=== PATIENT | female | born 1985 | race Hispanic/Latino ===

== ENCOUNTER 2021-09-25 08:37 | Emergency (ER) | payer BC, SELFPAY ==
[2021-09-25 08:47] VITALS: BP 136/85; PULSE 98; RESP 18; TEMP 38.2; O2SAT 98
--- NOTE | 2021-09-25 08:55 | ED.URI ---
HPI - URI/Sore Throat General Chief Complaint: Upper Respiratory Infection Stated Complaint: Sinus Infection Time Seen by Provider: 09/25/21 08:55 Source: patient and RN notes reviewed Mode of arrival: ambulatory Limitations: no limitations History of Present Illness HPI Narrative: 36-year-old female presents to [facility] with complaints of sinus infection for the last 3 to 4 days. Has been using DayQuil and NyQuil along with a humidifier. Complains of bilateral ear discomfort. States she is thinks she has had a fever Denies any chest pain or abdominal pain. No nausea vomiting or diarrhea. Denies any cough. No shortness of breath. Patient states that she received her flu vaccine in June. Patient denies having Covid vaccine. Related Data Home Medications Medication Instructions Recorded Confirmed dextroamphetamine-amphetamine 15 mg PO DAILY 09/25/21 09/25/21 epinephrine 0.3 mg IM DIRECTED 09/25/21 09/25/21 ergocalciferol (vitamin D2) 1,250 mcg PO DAILY 09/25/21 09/25/21 metformin 500 mg PO BID 09/25/21 09/25/21 Allergies Allergy/AdvReac Type Severity Reaction Status Date / Time No Known Allergies Allergy Verified 09/25/21 08:52 Review of Systems Review of Systems: All systems reviewed & are unremarkable except as noted in HPI and below Constitutional: Constitutional: Reports no additional constitutional complaints, Denies chills and Denies fever(s) Eyes: Eyes: Reports no additional eye complaints ENT: Reports as per HPI and Reports nasal congestion Cardiovascular: Cardiovascular: Reports no additional cardiovascular complaints and Denies chest pain Respiratory: Respiratory: Reports no additional respiratory complaints, Denies cough and Denies dyspnea Gastrointestinal: Gastrointestinal: Reports no additional gastrointestinal complaints, Denies abdominal pain, Denies diarrhea, Denies nausea and Denies vomiting Genitourinary: Genitourinary: Reports no additional female genitourinary complaints Musculoskeletal: Musculoskeletal: Reports no additional musculoskeletal complaints Integumentary/Breasts: Skin/Breast: Reports system reviewed and no additional complaints, except as docu Neurologic: Reports system reviewed and no additional complaints, except as documented Psychiatric: Psychiatric: Reports no additional psychiatric complaints Allergic/Immunologic: Allergic/Immunologic: Reports no additional allergic/immunologic complaints PMFSH Past Medical History Medical History ADHD PCOS (polycystic ovarian syndrome) Family History Family History Mother Hypertension Family history of diabetes mellitus in first degree relative Grandparent Family history of coronary artery disease Diabetes mellitus Social History Social History Smoking status: Never smoker Alcohol intake: current Comments At the time of my signature, I reviewed and agree with the nursing past medical, surgical, social, and family history. There is no relevant family history pertinent to the patient complaint. Exam Const: General: healthy appearing, no acute distress and alert Nutritional Appearance: well nourished and obese Orientation/consciousness: patient oriented x3 Limitations: no limitations HENMT: Head: normal to inspection Ears: external ears normal, TM's normal bilaterally and EAC's normal Eyes: Pupils: Equal, round and reactive pupils present Neck: Neck: normal visual inspection, no lymphadenopathy and no meningeal signs Chest: Chest palpation & inspection: normal inspection of the chest Resp: Effort & Inspection: normal respiratory effort and no use of accessory muscles Auscultation: clear to auscultation bilaterally, no crackles, no rales, no rhonchi and no wheezes Cardio: Rate: regular rate Rhythm: regular rhythm Back/Spine/Pelvis: Back: no CVA ten
== END 2021-09-25 09:45 | disposition home or self-care (01) ==
PROVIDERS: Emergency Provider Nurse Practitioner; PCP Physician Assistant
DX: B34.9 Viral infection, unspecified (principal); J06.9 Acute upper respiratory infection, unspecified
CPT/HCPCS: 87804; 99213; G0463

== ENCOUNTER 2021-10-05 07:47 | Outpatient (CLI) | payer BC, SELFPAY ==
--- NOTE | 2021-10-06 16:10 | WPDHOMESLEEP ---
Sleep Study - Home Unattended Date of Study: 10/05/21 <Kika Manjarrez, DO - Last Filed: 10/06/21 16:21> Ordering Provider: Gilbert InterianoCARLEY <Kika Manjarrez, DO - Last Filed: 10/06/21 16:21> Interpreting Provider: Kika Manjarrez DO <Kika Manjarrez, DO - Last Filed: 10/06/21 16:21> Home Sleep Study Type: Apnea Link Air <Kika Manjarrez, DO - Last Filed: 10/06/21 16:21> Height: 1.7 m <Kika Manjarrez DO - Last Filed: 10/06/21 16:21> Weight: 154.221 kg <Kika Manjarrez DO - Last Filed: 10/06/21 16:21> Body Mass Index: 53.2 <Kika Manjarrez DO - Last Filed: 10/06/21 16:21> Neck Circumference (inches): 16.75 <Kika Manjarrez DO - Last Filed: 10/06/21 16:21> [place]: 12 <Kika Manjarrez DO - Last Filed: 10/06/21 16:21> Reason for Sleep Study Unrefreshing sleep, daytime hypersomnia <Kika Manjarrez, DO - Last Filed: 10/06/21 16:21> Sleep History The patient is a 36-year-old female with ADHD, hypothyroidism, PCOS, Vitamin D deficiency and morbid obesity that had a home sleep test ordered by her primary care for evaluation sleep apnea. The patient occasionally awakens from sleep short of breath. She denies awakening at night with heartburn, belching or cough. She constantly snores loud enough that others complain. She frequently has trouble sleeping when she has a cold. She denies waking up gasping for air throughout the night. She frequently has breathing problems at night observed by herself or others. She denies sweating excessively at night. She denies heart palpitations or irregular heartbeats during the night. She occasionally falls asleep during the day but never while driving. She denies sleep paralysis, cataplexy and hypnagogic / hypnopompic hallucinations. She constantly has trouble at work due to sleepiness. She denies having nightmares. She frequently has thoughts racing through her mind. She occasionally feels sad or depressed. She occasionally has Keri. She occasionally notices parts of her body jerk. She denies kicking throughout the night. She occasionally has crawling and aching feelings in her legs as well as leg pain during the night. She denies grinding her teeth during sleep awakening with morning jaw pain. She denies being bothered by pain during the day and being awakened by pain during the night. She denies waking up feeling stiff in the morning with sore and achy muscles. She goes to bed at 10:00 p.m. on weekdays and 11:00 p.m. on the weekends. It takes her 1-2 hours to fall asleep. She typically wakes up 4-5 times throughout the night to urinate. She can fall back asleep within 5 minutes. She wakes up at 6:00 a.m. on both weekdays and weekends. She typically gets 5 hours of sleep per night. She will stay in bed for 5 minutes after awakening in the morning. She currently lives with her and children. She denies consuming any caffeinated beverages within 2 hours of bedtime. She does not engage in physical exercise before bedtime. She will read watch television before falling asleep she will take naps in the afternoon or the evening and they are refreshing. He does consume caffeinated beverages throughout the day. She denies tobacco, alcohol and recreational drug use. <Kika Manjarrez DO - Last Filed: 10/06/21 16:21> [facility] Past Medical History Medical History: Medical History ADHD PCOS (polycystic ovarian syndrome) <Kika Manjarrez DO - Last Filed: 10/06/21 16:21> Family History Family History: Family History Mother Hypertension Family history of diabetes mellitus in first degree relative Grandparent Family history of coronary artery disease Diabetes mellitus <Kika Manjarrez, DO - Last Filed: 10/06/21 16:21> Social Histor
[2021-10-06 16:20] VITALS: BMI 53.2
== END 2021-10-06 16:01 | disposition home or self-care (01) ==
LOC: ANHCSM 07:48
PROVIDERS: PCP Physician Assistant; Visit Provider Physician Assistant
DX: G47.33 Obstructive sleep apnea (adult) (pediatric) (principal)
CPT/HCPCS: 95806

== ENCOUNTER → 2021-11-11 00:53 | Outpatient (CLI) | payer BC, SELFPAY ==
[2021-11-11 11:43] LABS: SARS-CoV-2 RNA PCR Negative
== END ==
PROVIDERS: PCP Physician Assistant; Visit Provider Internal Medicine Critical Care Medicine
DX: Z01.812 Encounter for preprocedural laboratory examination (principal); Z20.822 Contact with and (suspected) exposure to COVID-19
CPT/HCPCS: C9803; U0003; U0005

== ENCOUNTER 2021-11-13 08:19 | Outpatient (CLI) | payer BC, SELFPAY ==
--- NOTE | 2021-11-23 16:02 | WPDSLEEPSTUD ---
Sleep Study Date of Study: 11/13/21 Ordering Provider: Hillary Interiano, CARLEY Interpreting Physician: Kika Manjarrez, Sleep Study Type: CPAP Titration Height: 1.7 m Weight: 145.15 kg Body Mass Index: 50.1 Neck Circumference (inches): 16.75 [place]: 12 Reason for Sleep Study The patient had an HSAT on 10/05/2021 that showed an AHI of 40.5. She spent 64 minutes with an oxygen saturation less than 88%. Her lowest recorded oxygen saturation was 47%. Sleep History The patient is a 36-year-old female with ADHD, hypothyroidism, PCOS, Vitamin D deficiency and morbid obesity that had a home sleep test ordered by her primary care for evaluation sleep apnea. The patient occasionally awakens from sleep short of breath. She denies awakening at night with heartburn, belching or cough. She constantly snores loud enough that others complain. She frequently has trouble sleeping when she has a cold. She denies waking up gasping for air throughout the night. She frequently has breathing problems at night observed by herself or others. She denies sweating excessively at night. She denies heart palpitations or irregular heartbeats during the night. She occasionally falls asleep during the day but never while driving. She denies sleep paralysis, cataplexy and hypnagogic / hypnopompic hallucinations. She constantly has trouble at work due to sleepiness. She denies having nightmares. She frequently has thoughts racing through her mind. She occasionally feels sad or depressed. She occasionally has Keri. She occasionally notices parts of her body jerk. She denies kicking throughout the night. She occasionally has crawling and aching feelings in her legs as well as leg pain during the night. She denies grinding her teeth during sleep awakening with morning jaw pain. She denies being bothered by pain during the day and being awakened by pain during the night. She denies waking up feeling stiff in the morning with sore and achy muscles. She goes to bed at 10:00 p.m. on weekdays and 11:00 p.m. on the weekends. It takes her 1-2 hours to fall asleep. She typically wakes up 4-5 times throughout the night to urinate. She can fall back asleep within 5 minutes. She wakes up at 6:00 a.m. on both weekdays and weekends. She typically gets 5 hours of sleep per night. She will stay in bed for 5 minutes after awakening in the morning. She currently lives with her and children. She denies consuming any caffeinated beverages within 2 hours of bedtime. She does not engage in physical exercise before bedtime. She will read watch television before falling asleep she will take naps in the afternoon or the evening and they are refreshing. She does consume caffeinated beverages throughout the day. She denies tobacco, alcohol and recreational drug use. [facility], [facility] Past Medical History Medical History ADHD PCOS (polycystic ovarian syndrome) Family History Family History Mother Hypertension Family history of diabetes mellitus in first degree relative Grandparent Family history of coronary artery disease Diabetes mellitus Social History Social History Smoking status: Never smoker Alcohol intake: current Medications Home Medications Medication Instructions Recorded Confirmed Type dextroamphetamine-amphetamine 15 mg PO DAILY 09/25/21 09/25/21 History epinephrine 0.3 mg IM DIRECTED 09/25/21 09/25/21 History ergocalciferol (vitamin D2) 1,250 mcg PO DAILY 09/25/21 09/25/21 History metformin 500 mg PO BID 09/25/21 09/25/21 History Sleep Procedure This test was performed using the [facility] multiple channel system including EOG, EEG, submental EMG, EKG, nasal and oral airflow using thermistors and nasal pressure sensors, chest and abdominal belts for body position data, an
[2021-11-23 16:15] VITALS: BMI 50.1
== END 2021-11-14 07:01 | disposition home or self-care (01) ==
LOC: ANHCSM 08:20
PROVIDERS: PCP Physician Assistant; Visit Provider Physician Assistant
DX: G47.33 Obstructive sleep apnea (adult) (pediatric) (principal)
CPT/HCPCS: 95811

== ENCOUNTER → 2022-09-23 14:55 | Outpatient (CLI) | payer BC, SELFPAY ==
--- NOTE | ~2022-09-23 | US_ITS ---
EXAMINATION: US pelvic complete w TV DATE: 09/23/2022 15:30 INDICATION: Personal history of other diseases of the female genital tract. Pelvic pain. Irregular pe riods. TECHNIQUE: Multiple transabdominal and transvaginal sonographic images of the pelvis were obtained. COMPARISON: Ultrasound 06/15/2019 FINDINGS: TRANSABDOMINAL ULTRASOUND: The uterus measures 9.5 x 5.3 x 7.1 cm. There is physiologic free fluid in the pelvis. TRANSVAGINAL ULTRASOUND: The endometrial complex measures 15 mm in thickness. There is a nabothian cyst in the cervix. The rig ht ovary measures 2.5 x 2.0 x 3.0 cm. The left ovary measures 3.6 x 3.2 x 2.8 cm. There is normal vas cular flow in the ovaries. IMPRESSION: 1. No etiology for the patient's symptoms. Reviewed, dictated and finalized at location A. CHECKER
== END ==
PROVIDERS: PCP Physician Assistant; Visit Provider Obstetrics & Gynecology
DX: N92.6 Irregular menstruation, unspecified (principal); Z87.42 Personal history of other diseases of the female genital tract
CPT/HCPCS: 76830; 76856

== ENCOUNTER → 2023-09-06 12:39 | Outpatient (CLI) | payer BC, SELFPAY ==
--- NOTE | ~2023-09-06 | US_ITS ---
EXAMINATION: US OB <= 14 weeks fetus DATE: 09/06/2023 12:54 INDICATION: Spotting during first trimester TECHNIQUE: Real-time pelvic transabdominal and transvaginal ultrasound was performed. COMPARISON: None. FINDINGS: The uterus measures 14 x 8.9 x 9.1 cm. There is an intrauterine gestational sac. A yolk sac is identified. heart motion is identified measuring 161 beats per minute (bpm) by M-mode Doppl er. The crown rump length measures 3.8 cm, which correlates with an estimated gestational age o f 10 weeks and 5 day(s) (+/-) 7 day(s). The ovaries are not visualized however no adnexal abnormality is seen. There is no free fluid in the pelvis. IMPRESSION: 1. Live intrauterine with an estimated gestational age of 10 weeks and 8 day(s) (+/-) 7 day (s) and an estimated delivery date of 03/29/2024. Reviewed, dictated and finalized at location L. K MANAGER IMPRESSION: 1. Live intrauterine with an estimated gestational age of 10 weeks an d 8 day(s) (+/-) 7 day(s) and an estimated delivery date of 03/29/2024.
== END ==
PROVIDERS: PCP Obstetrics & Gynecology Gynecology; Visit Provider Obstetrics & Gynecology Gynecology
DX: O20.0 Threatened abortion (principal); Z3A.00 Weeks of gestation of pregnancy not specified
CPT/HCPCS: 76801

== ENCOUNTER 2024-02-29 14:54 | Outpatient (CLI) | payer BC, SELFPAY ==
[2024-02-29] VITALS (9 sets, daily range): BP systolic 140–174; BP diastolic 87–94; PULSE 73–84
[2024-02-29 15:38] LABS: Basophils Percent Auto 0.4 % (0.2-1.2); Eosinophils Absolute Auto 0.1 K/mm3 (0-0.3); Eosinophils Percent Auto 1.2 % (0-4.4); Hematocrit 36.2 % (37.0-47.0); Immature Granulocyte Absolute 0.06 K/mm3 (0.00-0.031); Immature Granulocyte Percent A 0.7 % (0-0.5); Lymphocytes Absolute Auto 1.64 K/mm3 (0.9-3.2); Lymphocytes Percent Auto 18.4 % (18.3-44.2); Mean Corpuscular HGB Conc 33.1 g/dl (32-36); Mean Corpuscular Hemoglobin 29.3 pg (26-34); Mean Corpuscular Volume 88.3 fl (80-100); Mean Platelet Volume 11.8 fl (7.4-10.4); Monocytes Absolute Auto 0.6 K/mm3 (0.1-0.6); Monocytes Percent Auto 6.7 % (2.6-8.5); Neutrophils Absolute Auto 6.5 K/mm3 (1.3-6.7); Neutrophils Percent Auto 72.6 % (45.5-73.1); Platelet Count Result 227 k/mm3 (150-375); Red Cell Distribution Width 15.3 % (11.5-14.5); White Blood Count 8.9 K/mm3 (4.5-10.0)
[2024-02-29 15:48] LABS: Alanine Aminotransferase 12 U/L (6-35); Albumin Level 3.3 g/dL (3.5-5.1); Alkaline Phosphatase 103 U/L (38-126); Anion Gap 4 mmol/L (4-12); Aspartate Amino Transferase 16 U/L (14-36); Bilirubin,Total 0.3 mg/dL (0.2-1.3); Blood Urea Nitrogen 14 mg/dL (7-17); Calcium 9.2 mg/dL (8.4-10.2); Carbon Dioxide 22 mmol/L (22-30); Chloride 107 mmol/L (98-107); Estimated Glomerular Filt Rate > 60; Glucose 113 mg/dL (65-110); Potassium 4.5 mmol/L (3.4-5.0); Sodium 133 mmol/L (137-145); Uric Acid 6.1 mg/dL (2.5-7.5)
[2024-02-29 15:54] LABS: Appearance Urine Clear (Clear); Bacteria Urine Rare /hpf; Bilirubin Urine Negative (Negative); Blood Urine Negative (Negative); Color Urine Yellow (Yellow); Glucose Urine UA Negative (Negative); Ketones Urine Negative (Negative); Leukocyte Esterase Ur 2+ LEU/UL (Negative); Nitrate Urine Negative (Negative); Non Pathogenic Casts 0-2; Protein Urine Trace mg/dL (Negative); RBC Urine 0-2 /hpf (0-2); Specific Grav Ur 1.021 (1.001-1.035); Squamous Epithelial Cell Urine Moderate /hpf (Few); WBC Urine 21-50 /hpf (0-3); pH Urine 6.5 (5.0-9.0)
[2024-02-29 16:27] LABS: Add Urine Microscopic? YES
--- NOTE | 2024-02-29 16:35 | PM.OBTRLD ---
OB - Triage/Final Diagnosis Visit Information Date of evaluation: 02/29/24 Reason for evaluation: other (r/o preeclampsia) Comments/Additional reasons for admission: I have assessed the risk for this patient, Shelly Ceballos, and determined that she would benefit from observation care. Evaluation Laboratory results: Laboratory Tests 02/29/24 15:14 WBC 8.9 RBC 4.10 L Hgb 12.0 Hct 36.2 L MCV 88.3 MCH 29.3 MCHC 33.1 RDW 15.3 H Plt Count 227 MPV 11.8 H Immature Gran % (Auto) 0.7 H Neut % (Auto) 72.6 Lymph % (Auto) 18.4 [place] % (Auto) 6.7 Eos % (Auto) 1.2 Baso % (Auto) 0.4 Lymph # (Auto) 1.64 [place] # (Auto) 0.6 Eos # (Auto) 0.1 Baso # (Auto) 0.0 Abs Immat Gran (auto) 0.06 H Absolute Neuts (auto) 6.5 Absolute Nucleated RBC 0.000 Nucleated RBC % 0.0 Sodium 133 L Potassium 4.5 Chloride 107 Carbon Dioxide 22 Anion Gap 4 BUN 14 Creatinine 0.50 L Estim Creat Clear Calc Not Reportable Estimated GFR > 60 Glucose 113 H Uric Acid 6.1 Calcium 9.2 Total Bilirubin 0.3 AST 16 ALT 12 Alkaline Phosphatase 103 Total Protein 6.0 L Albumin 3.3 L Urine Color Yellow Urine Appearance Clear Urine pH 6.5 Ur Specific [place] 1.021 Urine Protein Trace Urine Glucose (UA) Negative Urine Ketones Negative Ur Blood (Man) Negative Urine Nitrate Negative Urine Bilirubin Negative Urine Urobilinogen 1.0 Leukocyte Esterase Rfl 2+ H Urine RBC 0-2 Urine WBC 21-50 H Ur Squamous Epith Cells Moderate Urine Bacteria Rare Urine Casts 0-2 Vital signs: Vital Signs - 24 hr 02/29/24 15:30 02/29/24 15:45 02/29/24 16:00 Pulse Rate 77 79 78 Blood Pressure 153/90 H 154/87 H 151/94 H 02/29/24 16:15 02/29/24 16:30 Pulse Rate 74 76 Blood Pressure 140/87 144/87 H Comments: NST reactive. BPs mild range, 1 severe but was talking on phone and legs crossed. Rechecked and mild range. No MARTIN, visual changes, RUQ pain. Labs WNL. DC home with 24 hour urine collection. Pt to check BPs at home BID and report if greater than 160/110. To turn in 24 hour urine tomorrow. NST in the office on 03/02/24
[2024-02-29 17:18] LABS: Creatinine Urine 77.5 mg/dL; Total Protein Urine Random 19 mg/dL; Ur Ttl Prot Creatinine Ratio 0.25 mg/mg (0-0.20)
== END 2024-02-29 17:50 ==
LOC: ANHOBOP 14:59 → ANHOBPP 15:00
PROVIDERS: PCP Physician Assistant; Visit Provider Advanced Practice Midwife
DX: O13.9 Gestational [pregnancy-induced] hypertension without significant proteinuria, unspecified trimester (principal); Z3A.00 Weeks of gestation of pregnancy not specified
CPT/HCPCS: 36415; 59025; 80053; 81001; 82570; 84156; 84550; 85025; 87086; 87088; 99199

== ENCOUNTER 2024-03-01 18:24 | Outpatient (NON) | payer BC, SELFPAY ==
[2024-03-01 18:51] VITALS: BMI 57.4
[2024-03-01 23:20] LABS: Collection Time Urine 24 HOURS
[2024-03-02 12:36] LABS: Creatinine Urine 78.2 mg/dL; Patient Weight 367 Lbs; Total Protein Urine Random 16 mg/dL
[2024-03-02 13:20] LABS: Creatinine Clearance Urine 129.7 ml/min (75-125); Total Protein Urine 24 Hr 288 mg/24hr (28-141); Total Volume 24 Hour Urine 1800 ml
== END 2024-03-01 18:25 | disposition home or self-care (01) ==
PROVIDERS: PCP Physician Assistant; Visit Provider Advanced Practice Midwife
DX: O13.9 Gestational [pregnancy-induced] hypertension without significant proteinuria, unspecified trimester (principal)
CPT/HCPCS: 81050; 82575; 84156

== ENCOUNTER 2024-03-05 12:27 | Outpatient (CLI) | payer BC, SELFPAY ==
[2024-03-05 13:24] VITALS: BP 151/83; PULSE 77
[2024-03-05 13:28] LABS: Basophils Percent Auto 0.4 % (0.2-1.2); Eosinophils Absolute Auto 0.1 K/mm3 (0-0.3); Hematocrit 35.4 % (37.0-47.0); Hemoglobin 11.7 g/dL (12.0-15.0); Immature Granulocyte Absolute 0.06 K/mm3 (0.00-0.031); Immature Granulocyte Percent A 0.8 % (0-0.5); Lymphocytes Absolute Auto 1.65 K/mm3 (0.9-3.2); Lymphocytes Percent Auto 20.7 % (18.3-44.2); Mean Corpuscular HGB Conc 33.1 g/dl (32-36); Mean Corpuscular Volume 87.8 fl (80-100); Mean Platelet Volume 12.1 fl (7.4-10.4); Monocytes Absolute Auto 0.5 K/mm3 (0.1-0.6); Monocytes Percent Auto 6.5 % (2.6-8.5); Neutrophils Absolute Auto 5.7 K/mm3 (1.3-6.7); Neutrophils Percent Auto 70.6 % (45.5-73.1); Platelet Count Result 217 k/mm3 (150-375); Red Blood Count 4.03 M/mm3 (4.2-5.4); Red Cell Distribution Width 15.5 % (11.5-14.5)
[2024-03-05 13:30] VITALS: BP 144/82; PULSE 76
[2024-03-05 13:33] LABS: Add Urine Microscopic? YES; Appearance Urine Cloudy (Clear); Bacteria Urine 1+ /hpf; Bilirubin Urine Negative (Negative); Blood Urine Negative (Negative); Color Urine Yellow (Yellow); Glucose Urine UA Negative (Negative); Ketones Urine Negative (Negative); Leukocyte Esterase Ur 3+ LEU/UL (Negative); Nitrate Urine Negative (Negative); Non Pathogenic Casts 0-2; Protein Urine 1+ mg/dL (Negative); RBC Urine 0-2 /hpf (0-2); Specific Grav Ur 1.013 (1.001-1.035); Squamous Epithelial Cell Urine Moderate /hpf (Few); Urobilinogen Urine 0.2 mg/dL (<2.0); WBC Urine 21-50 /hpf (0-3); pH Urine 6.5 (5.0-9.0)
[2024-03-05 13:38] LABS: Alanine Aminotransferase 12 U/L (6-35); Albumin Level 3.1 g/dL (3.5-5.1); Alkaline Phosphatase 99 U/L (38-126); Anion Gap 5 mmol/L (4-12); Aspartate Amino Transferase 18 U/L (14-36); Bilirubin,Total 0.2 mg/dL (0.2-1.3); Blood Urea Nitrogen 10 mg/dL (7-17); Calcium 8.8 mg/dL (8.4-10.2); Carbon Dioxide 19 mmol/L (22-30); Chloride 108 mmol/L (98-107); Estimated Glomerular Filt Rate > 60; Glucose 111 mg/dL (65-110); Sodium 132 mmol/L (137-145); Uric Acid 6.6 mg/dL (2.5-7.5)
[2024-03-05 13:45] VITALS: BP 146/85; PULSE 74
[2024-03-05 14:00] VITALS: BP 145/86; PULSE 74
[2024-03-05 14:00] LABS: Creatinine Urine 72.6 mg/dL; Total Protein Urine Random 31 mg/dL; Ur Ttl Prot Creatinine Ratio 0.43 mg/mg (0-0.20)
--- NOTE | 2024-03-05 14:06 | PC.NURSE ---
1405: RN phoned CNM to inform her of patient's vital signs, lab results, and FHT tracing. CNM stated she will discuss with Dr. Petit about possible induction today.
[2024-03-05 14:15] VITALS: BP 148/80; PULSE 77
--- NOTE | 2024-03-05 14:21 | PC.NURSE ---
1417: CNM called RN to inform her that patient should be discharged home after a dose of Celestone today, with orders to return to the hospital in 24 hours for her next dose of Celestone. Orders to disharge patient home with instructions to take her blood pressure at home 3 times a day at home and call the office with results daily. CNM stated patient should be on modified bedrest. CNM recommends induction in the 37th week.
[2024-03-05] MEDS: BETAMETHASONE SOD PHOS/ACETATE 30 MG/5 ML VIAL 12 MG IM (14:41)
--- NOTE | 2024-03-05 15:00 | PC.NURSE ---
1455: Patient wants to wait until 03/11/2024 to be induced in order for CNM to be able to deliver her. Patient aware that depending on her blood pressures and preeclampsia symptoms that the induction date may change. CNM aware that office needs to fax over patient information for her induction on 03/11/24.
[2024-03-05 15:02] VITALS: BP 151/83; PULSE 77
== END 2024-03-05 15:00 ==
LOC: ANHOBOP 12:33 → ANHOBPP 12:34
PROVIDERS: PCP Physician Assistant; Visit Provider Advanced Practice Midwife
DX: O13.9 Gestational [pregnancy-induced] hypertension without significant proteinuria, unspecified trimester (principal); Z3A.00 Weeks of gestation of pregnancy not specified
CPT/HCPCS: 36415; 59025; 80053; 81001; 82570; 84156; 84550; 85025; 87086; 87088; 96372; 99199; J0702

== ENCOUNTER 2024-03-06 15:11 | Outpatient (CLI) | payer BC, SELFPAY ==
[2024-03-06] MEDS: BETAMETHASONE SOD PHOS/ACETATE 30 MG/5 ML VIAL 12 MG IM (15:39)
== END 2024-03-06 15:41 | disposition home or self-care (01) ==
LOC: ANHOBOP 15:24
PROVIDERS: PCP Physician Assistant; Visit Provider Advanced Practice Midwife
DX: Z34.90 Encounter for supervision of normal pregnancy, unspecified, unspecified trimester (principal); Z3A.00 Weeks of gestation of pregnancy not specified
CPT/HCPCS: 96372; J0702

== ENCOUNTER 2024-03-11 16:17 | Inpatient (IN) | payer BC, SELFPAY ==
[2024-03-11] VITALS (24 sets, daily range): BP systolic 141–187; BP diastolic 79–106; PULSE 71–83; TEMP 37; BMI 56.9
--- NOTE | 2024-03-11 16:54 | LDADM ---
This patient, Shelly Ceballos, was admitted to Labor/Delivery/Recovery 108 on 03/11/24 at 16:17. Plans for labor, pain management and were discussed with patient. Patient/family oriented to hospital policies and general routines including ID bracelet, bed and alarms, visiting hours, pain management, procedures, bathroom and other care routines, personal items, smoking policy, room service/diet and guest tray routines, infant security routines, and visiting hours. Patient/Family are encouraged to report perceived risks to care and to ask questions if they do not understand what they are told or what they should do. See OBIX for further documentation.
[2024-03-11 17:21] LABS: Basophils Percent Auto 0.4 % (0.2-1.2); Eosinophils Absolute Auto 0.1 K/mm3 (0-0.3); Eosinophils Percent Auto 0.9 % (0-4.4); Hemoglobin 12.1 g/dL (12.0-15.0); Immature Granulocyte Absolute 0.11 K/mm3 (0.00-0.031); Lymphocytes Absolute Auto 2.41 K/mm3 (0.9-3.2); Lymphocytes Percent Auto 22.4 % (18.3-44.2); Mean Corpuscular HGB Conc 32.7 g/dl (32-36); Mean Corpuscular Hemoglobin 29.2 pg (26-34); Mean Corpuscular Volume 89.4 fl (80-100); Mean Platelet Volume 12.7 fl (7.4-10.4); Monocytes Absolute Auto 0.9 K/mm3 (0.1-0.6); Monocytes Percent Auto 8.2 % (2.6-8.5); Neutrophils Absolute Auto 7.2 K/mm3 (1.3-6.7); Neutrophils Percent Auto 67.1 % (45.5-73.1); Platelet Count Result 231 k/mm3 (150-375); Red Blood Count 4.14 M/mm3 (4.2-5.4); Red Cell Distribution Width 16.3 % (11.5-14.5); White Blood Count 10.8 K/mm3 (4.5-10.0)
[2024-03-11 17:24] LABS: Alanine Aminotransferase 12 U/L (6-35); Albumin Level 3.3 g/dL (3.5-5.1); Alkaline Phosphatase 102 U/L (38-126); Anion Gap 8 mmol/L (4-12); Aspartate Amino Transferase 18 U/L (14-36); Bilirubin,Total 0.3 mg/dL (0.2-1.3); Blood Urea Nitrogen 17 mg/dL (7-17); Carbon Dioxide 18 mmol/L (22-30); Chloride 107 mmol/L (98-107); Estimated CRCL calculation 211 ml/min; Estimated Glomerular Filt Rate > 60; Glucose 125 mg/dL (65-110); Sodium 133 mmol/L (137-145)
[2024-03-11] MEDS: miSOPROStol 25 MCG TABLET BUCCAL (17:35)
[2024-03-11] MEDS: hydrALAZINE HCL 20 MG/ML VIAL 5 MG IV PUSH (17:37)
[2024-03-11] MEDS: hydrALAZINE HCL 20 MG/ML VIAL 10 MG IV PUSH (18:03)
[2024-03-11 18:05] LABS: HIV 1/2 Ab P24 Ag Result Negative (Negative)
[2024-03-11] MEDS: LABETALOL HCL INJ 100 MG/20 ML VIAL 20 MG IV PUSH (18:33)
[2024-03-11] MEDS: LABETALOL HCL INJ 100 MG/20 ML VIAL 40 MG IV PUSH (18:54)
[2024-03-11] MEDS: miSOPROStol 25 MCG TABLET 50 MCG BUCCAL (21:35)
[2024-03-12] VITALS (108 sets, daily range): BP systolic 111–192; BP diastolic 58–114; PULSE 25–132; RESP 18–20; TEMP 36.6–36.9; O2SAT 81–100
[2024-03-12] MEDS: miSOPROStol 25 MCG TABLET 50 MCG BUCCAL (01:24)
[2024-03-12] MEDS: OXYTOCIN 30 UNITS/NS 500 ML 30 UNITS/500 ML BAG IV CONT (05:56)
[2024-03-12] MEDS: LACTATED RINGERS 1,000 ML 125 ML IV CONT ×2 (05:57→10:58)
--- NOTE | 2024-03-12 07:15 | WPDANESEPP ---
Anes - Eval Pre Procedure Procedure: labor epidural Date/Time: 03/12/24 07:15 Surgeon: nat Preop Diagnosis: pain during labor Pre Op Diagnosis: IOL Patient Data Age: 38 Gender: F Height: 1.7 m Weight: 165 kg Last Vital Signs Temp 36.8 C 03/12/24 04:00 Pulse 73 03/12/24 07:00 BP 150/91 H 03/12/24 07:00 O2 Del Method Room Air 03/11/24 16:50 Allergies Allergy/AdvReac Type Severity Reaction Status Date / Time No Known Allergies Allergy Verified 09/25/21 08:52 Home Medications Medication Instructions Recorded Confirmed Type dextroamphetamine-amphetamine ER 15 mg PO DAILY 09/25/21 09/25/21 History 15 mg 24hr capsule,extend release epinephrine 0.3 mg/0.3 mL 0.3 mg IM DIRECTED 09/25/21 09/25/21 History injection, auto-injector ergocalciferol (vitamin D2) 1,250 1,250 mcg PO DAILY 09/25/21 09/25/21 History mcg (50,000 unit) capsule metformin 500 mg tablet 500 mg PO BID 09/25/21 09/25/21 History Laboratory Tests 03/11/24 03/11/24 16:35 16:37 WBC 10.8 H K/mm3 (4.5-10.0) RBC 4.14 L M/mm3 (4.2-5.4) Hgb 12.1 g/dL (12.0-15.0) Hct 37.0 % (37.0-47.0) MCV 89.4 fl (80-100) MCH 29.2 pg (26-34) MCHC 32.7 g/dl (32-36) RDW 16.3 H % (11.5-14.5) Plt Count 231 k/mm3 (150-375) MPV 12.7 H fl (7.4-10.4) Immature Gran % (Auto) 1.0 H % (0-0.5) Neut % (Auto) 67.1 % (45.5-73.1) Lymph % (Auto) 22.4 % (18.3-44.2) [place] % (Auto) 8.2 % (2.6-8.5) Eos % (Auto) 0.9 % (0-4.4) Baso % (Auto) 0.4 % (0.2-1.2) Lymph # (Auto) 2.41 K/mm3 (0.9-3.2) [place] # (Auto) 0.9 H K/mm3 (0.1-0.6) Eos # (Auto) 0.1 K/mm3 (0-0.3) Baso # (Auto) 0.0 K/mm3 (0.0-0.1) Abs Immat Gran (auto) 0.11 H K/mm3 (0.00-0.031) Absolute Neuts (auto) 7.2 H K/mm3 (1.3-6.7) Absolute Nucleated RBC 0.000 K/mm3 (0.0-0.012) Nucleated RBC % 0.0 % (0.0-0.2) Sodium 133 L mmol/L (137-145) Potassium 4.0 mmol/L (3.4-5.0) Chloride 107 mmol/L (98-107) Carbon Dioxide 18 L mmol/L (22-30) Anion Gap 8 mmol/L (4-12) BUN 17 mg/dL (7-17) Creatinine 0.50 L mg/dL (0.7-1.0) Estim Creat Clear Calc 211 ml/min Estimated GFR > 60 (59 - ) Glucose 125 H mg/dL (65-110) Uric Acid 7.0 mg/dL (2.5-7.5) Calcium 9.0 mg/dL (8.4-10.2) Total Bilirubin 0.3 mg/dL (0.2-1.3) AST 18 U/L (14-36) ALT 12 U/L (6-35) Alkaline Phosphatase 102 U/L (38-126) Total Protein 6.0 L g/dL (6.3-8.2) Albumin 3.3 L g/dL (3.5-5.1) RPR Pending HIV 1&2 Ab/P24 Ag 4thGn Negative (Negative) Blood Type B Positive Antibody Screen Negative Patient hx anesthesia problems: none Family hx anesthesia problems: none Results Review: All pre-operative results and documents have been reviewed as part of the pre-operative evaluation. [facility] Past Medical History Medical History (Updated 03/12/24 @ 07:16 by Patito Tellez CRNA) ADHD Morbid obesity with BMI of 50.0-59.9, adult PCOS (polycystic ovarian syndrome) Family History Family History Mother Hypertension Family history of diabetes mellitus in first degree relative Grandparent Family history of coronary artery disease Diabetes mellitus Social History Social History Smoking status: Never smoker Alcohol intake: current Substance use: never Do You Feel Safe in your Home?: Yes Lack of Transportation: No Lack of Food: Never True Current Housing: I Have Housing Concerned About Future Housing: No Difficulty Paying Gas/Electric Bills: No Difficulty Paying for Meds: No Currently Unemployed: No Education: Don'
--- NOTE | 2024-03-12 07:57 | WPDOBADMIT ---
Obstetrics - Admit Note Admission Note: record reviewed. No pertinent additions to the history and/or any subsequent changes in the physical findings that are not consistent with the expected course of the were found. Additions to the history and/or subsequent changes in the physical findings follow. None.
--- NOTE | 2024-03-12 07:57 | PM.OBPNLAB ---
Pain Control Date/time seen: 03/12/24 07:50 Pain control: tolerating well Comments: Feeling occasional cramping, very mild Pelvic Exam Dilation (cm): 1 Effacement (%): 50 station: -3 Amniotic membrane status: Intact Contractions Monitor mode: External Contraction pattern: Irregular Status status: Category l Comments: Tracing intermittent. RN frequently repositioning. Assessment and Plan Pitocin rate (mU/min): 6 Assessment: induction ongoing Comments: Shelly Was admitted yesterday evening. Her blood pressures were severe on admission and she was treated with hydralazine and labetalol per the maternal hypertension protocol. The plan of care was discussed with Dr. Glenn Quiroga. Blood pressures came down to mild range. Cytotec was given for cervical ripening. CNM at bedside this a.m. and plan of care discussed with patient and family. She denies headache, visual changes, right upper quadrant pain, or any increase in swelling. Discussed amniotomy and placement of internal monitoring to better facilitate uterine contraction pattern and heart rate. Patient wishes to defer amniotomy at this time and states that a cervical ripening balloon worked very well for her in her 1st . Discussed risks and benefits and patient is agreeable to a Kulkarni balloon for cervical dilation. Kulkarni catheter placed easily through the internal os using stylet. Catheter inflated with 40 mL of sterile saline into being secured patient's thigh. Plan to have RN check Kulkarni balloon placement by applying traction at least once an hour. Next steps would be to consider amniotomy and placement of internal monitors if indicated. Dr. Arroyo updated.
[2024-03-12] MEDS: LABETALOL HCL INJ 100 MG/20 ML VIAL 20 MG IV PUSH (10:16)
--- NOTE | 2024-03-12 11:27 | PM.IMHP ---
H&P: HPI History of Present Illness Date/Time: 03/12/24 11:27 Chief Complaint: Breech presentation Narrative: Patient is a 38-year-old 2 para 1 at 37 4/7th weeks admitted for preeclampsia for induction of labor. Luci Rawls placed barton balloon which has come out. RN could feel no presenting part. I performed a bedside u/s and infant head in RUQ. Minimal fluid, anterior placenta, morbid obesity, and heart shaped uterus do not make for a good version candidate. Will proceed with csection when anesthesia staffing available. FHTs category I. labs B+, Rubella immune, RPR -, HepBSAg -, HIV-, GBS -. Review of Systems Review of Systems: not repeated day of surgery; patient states no changes in status [facility] Past Medical History Medical History (Updated 03/12/24 @ 11:37 by Darlene Carter MD) ADHD B12 deficiency Edison's thyroiditis Morbid obesity with BMI of 50.0-59.9, adult PCOS (polycystic ovarian syndrome) Family History Family History Mother Hypertension Family history of diabetes mellitus in first degree relative Grandparent Family history of coronary artery disease Diabetes mellitus Social History Social History Smoking status: Never smoker Alcohol intake: current Substance use: never Do You Feel Safe in your Home?: Yes Lack of Transportation: No Lack of Food: Never True Current Housing: I Have Housing Concerned About Future Housing: No Difficulty Paying Gas/Electric Bills: No Difficulty Paying for Meds: No Currently Unemployed: No Education: Don't Know Difficulty w/ Childcare or Family Care: No Spiritual care concerns: No Meds Home Medications and Allergies Home Medications Medication Instructions Recorded Confirmed Type dextroamphetamine-amphetamine ER 15 mg PO DAILY 09/25/21 09/25/21 History 15 mg 24hr capsule,extend release epinephrine 0.3 mg/0.3 mL 0.3 mg IM DIRECTED 09/25/21 09/25/21 History injection, auto-injector ergocalciferol (vitamin D2) 1,250 1,250 mcg PO DAILY 09/25/21 09/25/21 History mcg (50,000 unit) capsule metformin 500 mg tablet 500 mg PO BID 09/25/21 09/25/21 History Allergies Allergy/AdvReac Type Severity Reaction Status Date / Time No Known Allergies Allergy Verified 09/25/21 08:52 Vital Signs Vital Signs - 24 hr 03/11/24 16:50 03/11/24 17:03 03/11/24 17:15 Temperature Pulse Rate 79 76 Blood Pressure 187/106 H 169/103 H Pulse Oximetry Oxygen Delivery Room Air 03/11/24 17:30 03/11/24 17:37 03/11/24 18:00 Temperature Pulse Rate 74 77 77 Blood Pressure 167/100 H 171/103 H 164/91 H Pulse Oximetry Oxygen Delivery 03/11/24 18:20 03/11/24 18:40 03/11/24 19:00 Temperature Pulse Rate 79 75 75 Blood Pressure 164/90 H 160/91 H 149/84 H Pulse Oximetry Oxygen Delivery 03/11/24 19:30 03/11/24 19:45 03/11/24 20:00 Temperature Pulse Rate 74 73 73 Blood Pressure 150/88 H 153/91 H 152/88 H Pulse Oximetry Oxygen Delivery 03/11/24 20:15 03/11/24 20:30 03/11/24 20:45 Temperature Pulse Rate 78 71 73 Blood Pressure 160/89 H 152/84 H 156/87 H Pulse Oximetry Oxygen Delivery 03/11/24 21:00 03/11/24 21:15 03/11/24 21:30 Temperature Pulse Rate 83 79 81 Blood Pressure 154/86 H 156/86 H 154/85 H Pulse Oximetry Oxygen Delivery 03/11/24 21:45 03/11/24 22:20 03/11/24 22:40 Temperature Pulse Rate 78 76 74 Blood Pressure 151/79 H 144/81 H 148/81 H Pulse Oximetry Oxygen Delivery 03/11/24 23:00 03/11/24 23:42 03/11/24 23:30 Temperature 98.6 F Pulse Rate 79 76 Blood Pressure 141/84 H 149/88 H Pulse Oximetry Oxygen Delivery 03/12/24 00:00 03/12/24 00:20 03/12/24 00:40 Temperature Pulse Rate 72 71 70 Blood Pressure 134/80 138/82 147/88 H Pulse Oximetry Oxygen Delive
[2024-03-12] MEDS: LABETALOL HCL INJ 100 MG/20 ML VIAL 40 MG IV PUSH (11:38)
[2024-03-12] MEDS: AZITHROMYCIN 500 MG/NS 250 ML 500 MG/250 ML BAG 250 MG IVPB (11:49)
--- NOTE | 2024-03-12 12:32 | P.PNAN_ITS ---
Anes - Eval Final PreProcedure Day of Procedure 03/12/24 12:32 Patient weight: super morbidly obese Heart: regular rate and rhythm Lungs: clear to auscultation and normal air movement Airway: Mallampati scale class II Neurological: alert and oriented Last oral intake: >/= 8 hours ASA classification: III Emergent: no Anesthetic plan: proceed Anesthesia type and monitoring: regional epidural and standard monitoring Results Review: All pre-operative results and documents have been reviewed as part of the pre- operative evaluation. Informed Consent: The patient's anesthetic plan and its attendant risks and benefits were discussed with the patient/family/POA. Questions were solicited and answers provided to the satisfaction of the patient/family/POA.
[2024-03-12] MEDS: ceFAZolin 3 GM/D5W 100 ML 100 ML IVPB (13:00)
[2024-03-12] MEDS: ONDANSETRON INJ 4 MG/2 ML VIAL IV PUSH (13:00)
[2024-03-12] MEDS: FAMOTIDINE 20 MG/2 ML VIAL IV PUSH (13:00)
--- NOTE | 2024-03-12 13:47 | W.PM.OBCSD ---
OB - Delivery Note Procedure Delivery date: 03/12/24 Pre-op diagnosis: Breech Presentation, Preeclampsia w severe features and Other (37 4/7 wk) Post-op Diagnosis: Same Induction method: Per Misoprostol Protocol and Other ( Kulkarni bulb) Delivery monitor: External FHT and External Uterine Procedure Performed: Primary Primary branch: low cervical, transverse Surgeon: Darlene Carter MD Anesthesia type: Epidural Description of Procedure/Findings: the patient was taken to the operating room and placed under epidural anesthesia in the dorsal supine position with a leftward tilt. Once she was under adequate anesthesia a Pfannenstiel skin incision was made with a scalpel and carried down to the fascia which was nicked in the midline. The fascial incision was extended laterally using Mercer scissors. Ochsner was used to tent the fascia which was then dissected using sharp and blunt dissection. The rectus muscles were in the midline and the peritoneum entered bluntly. The incision was extended with blunt traction. The Rosales O retractor was placed. The vesicouterine peritoneum was tented and entered with Metzenbaum and extended laterally the bladder flap was created digitally. The lower uterine segment was incised in a transverse fashion. The placenta is at the incision. The is palpated distal to the placenta and both feet are grasped and the membranes ruptured with clear fluid. The was delivered to the scapula, rotated, left arm was splinted and delivered. The infant was then rotated, right arm was splinted, and right arm was delivered. The is extended on the abdomen however it is had remained extended. I could not get the chin to flex. The head was grasped with my right hand and manually flexed. The infant's head was then able to be delivered. The infant cord was clamped and cut. The was handed to the waiting nursery nurse. The placenta was removed using manual traction. The uterus was cleared of all clots and debris and the heart shape uterus is verified. The distal incision is grasped with a ring forceps. The uterine incision was closed using 0 Monocryl in a running locked fashion with the same suture used to imbricate. Good hemostasis is noted. The gutters are irrigated. The incision was again inspected noted to be hemostatic. The Rosales O retractor was removed. The fascia was closed using 0 Vicryl in a running fashion. Subcutaneous tissues are irrigated made hemostatic using Bovie cautery. The skin is closed using 4-0 Vicryl in a subcuticular fashion. The Dermaflex was placed over the incision and after it dried the silver infused dressing is placed. The patient in addition had a skin tag on the mons with a very small base this was grasped and the base cauterized. This was not sent for specimen. Patient had previously requested this to be removed. The sponge, needle, and instrument counts are correct per the OR staff. Patient was taken to recovery in stable condition. Patient was given Ancef and Zithromax prior to incision. Specimen: Yes ( Placenta) Estimated Blood Loss: 320 Drains: Yes ( Kulkarni catheter) Packing: No Pathology: Yes ( see above) Complications: No immediate complications Condition: Stable Disposition: Floor Baby Date of : 03/12/24 Weeks of gestation at delivery: 37 Infant gender: Male Weight (pounds): 6 Weight (ounces): 10 presentation: breech ( double footling breech) Placenta delivery description: Spontaneous Cord Vessel Description: 3 Vessels and Clamped/Cut Narrative: Apgars were not calculated at the time of this dictation. Tubes and ovaries appear grossly normal. Uterus is heart shaped.
--- NOTE | 2024-03-12 13:54 | PM.OBDSVD ---
DS: Admitting Diagnosis Discharge Date 03/14/24 Admitting Diagnosis Intrauterine at 37 and 4/7 preeclampsia was severe features breech presentation DS: Discharge Diagnosis Discharge Diagnosis (1) Delivery by section using transverse incision of lower segment of uterus: Code(s): O82 - Encounter for delivery without indication Status: Acute (2) Preeclampsia: Code(s): O14.90 - Unspecified pre-eclampsia, unspecified trimester Status: Acute (3) Morbid obesity with BMI of 50.0-59.9, adult: Code(s): E66.01 - Morbid (severe) obesity due to excess calories; Z68.43 - Body mass index [BMI] 50.0-59.9, adult Status: Acute OB - DS: Summary OB Procedures : NST, PIH Mgmt and Ultrasound OB Procedures Intrapartum: low cervical, transverse OB Procedures: : None Peripartum Data Procedures: Procedures Operation Date: 03/12/24 11:45 <No data on this case meets the specified criteria> Time Spent with Patient Time attestation: Total time spent providing and/or coordinating discharge services: DS: Data Data Completed and Pending Labs on day of discharge: Labs from last 24 hours 03/11/24 03/11/24 16:37 16:35 WBC 10.8 H RBC 4.14 L Hgb 12.1 Hct 37.0 MCV 89.4 MCH 29.2 MCHC 32.7 RDW 16.3 H Plt Count 231 MPV 12.7 H Immature Gran % (Auto) 1.0 H Neut % (Auto) 67.1 Lymph % (Auto) 22.4 Cataño % (Auto) 8.2 Eos % (Auto) 0.9 Baso % (Auto) 0.4 Lymph # (Auto) 2.41 Cataño # (Auto) 0.9 H Eos # (Auto) 0.1 Baso # (Auto) 0.0 Abs Immat Gran (auto) 0.11 H Absolute Neuts (auto) 7.2 H Absolute Nucleated RBC 0.000 Nucleated RBC % 0.0 Sodium 133 L Potassium 4.0 Chloride 107 Carbon Dioxide 18 L Anion Gap 8 BUN 17 Creatinine 0.50 L Estim Creat Clear Calc 211 Estimated GFR > 60 Glucose 125 H Uric Acid 7.0 Calcium 9.0 Total Bilirubin 0.3 AST 18 ALT 12 Alkaline Phosphatase 102 Total Protein 6.0 L Albumin 3.3 L RPR Pending HIV 1&2 Ab/P24 Ag 4thGn Negative Blood Type B Positive Antibody Screen Negative Discharge Plan Discharge Attending physician on discharge: Darlene Carter Discharging Clinician: Luci Rawls Anticipated Discharge Date/Time: 03/14/24 11:09 Patient Disposition: Home, Self-Care Activity: may shower, may drive after 2 weeks and pelvic rest Diet: regular Wound Care Instructions: keep dressing dry Discharge Instructions: Continue taking your vitamin and any other supplements as previously directed (Examples: Iron, Vitamin D). You may take Tylenol 1000mg over the counter every 6 hours as needed for pain. Do not exceed 4000mg of Tylenol daily. You may continue using tucks pads and dermoplast spray if needed for a few more days. Blood Pressure Instructions Check your BP at home twice daily. Keep a log and bring to your next visit. Report any BP readings over 160/110 to provider immediately. (Please call if either number is elevated) Headache that does not improve with 2 Extra Strength Tylenol (you may take Ibuprofen if not ) Visual changes such as blurred vision or flashes of light Pain under the right breast Significant increase in swelling with any of the above symptoms * Make sure you are sitting for at least 5 minutes before checking your blood pressure. Keep legs uncrossed and avoid talking while taking your blood pressure. Depression Notify provider for signs or symptoms. These may include- Feelings: Feeling anxious, angry, hopeless, guilt, or loss of interest/pleasure in activities you normally enjoy. Mood swings or panic attacks. General: Extreme fatigue, loss of your appetite, feeling restless. Crying excessively, irritability, insomnia Psychological: Lack of concentration, d
[2024-03-12 14:42] LABS: Rapid Plasma Reagin Non-Reactive (NonReactive)
--- NOTE | 2024-03-12 16:15 | PC.NURSE ---
called Dr. Carter reported elevated BP. order received for procardia 30 XL.
[2024-03-12] MEDS: ACETAMINOPHEN 325 MG TABLET 650 MG PO ×2 (16:37→23:36)
[2024-03-12] MEDS: NIFEdipine 30 MG TAB.ER.24 PO (16:38)
--- NOTE | 2024-03-12 16:45 | PC.NURSE ---
Patient transferred to post room #277 per bed from labor and delivery. Support person present. Oriented to unit, room, information board, rooming in, admission packet and security measures. Patient verbalizes understanding.
[2024-03-12] MEDS: KETOROLAC 15 MG/ML VIAL (*BKC) IV PUSH ×2 (17:00→23:36)
[2024-03-13 01:26] VITALS: BP 137/90; PULSE 65; RESP 20; TEMP 37.1; O2SAT 95
[2024-03-13] MEDS: ACETAMINOPHEN 325 MG TABLET 650 MG PO ×3 (05:46→17:50)
[2024-03-13] MEDS: KETOROLAC 15 MG/ML VIAL (*BKC) IV PUSH ×2 (05:46→11:35)
[2024-03-13 05:48] LABS: Basophils Percent Auto 0.4 % (0.2-1.2); Eosinophils Absolute Auto 0.1 K/mm3 (0-0.3); Eosinophils Percent Auto 1.1 % (0-4.4); Hematocrit 33.6 % (37.0-47.0); Hemoglobin 10.9 g/dL (12.0-15.0); Immature Granulocyte Absolute 0.07 K/mm3 (0.00-0.031); Immature Granulocyte Percent A 0.6 % (0-0.5); Lymphocytes Absolute Auto 2.23 K/mm3 (0.9-3.2); Lymphocytes Percent Auto 20.4 % (18.3-44.2); Mean Corpuscular HGB Conc 32.4 g/dl (32-36); Mean Corpuscular Volume 89.4 fl (80-100); Mean Platelet Volume 12.2 fl (7.4-10.4); Monocytes Absolute Auto 0.9 K/mm3 (0.1-0.6); Monocytes Percent Auto 8.4 % (2.6-8.5); Neutrophils Absolute Auto 7.6 K/mm3 (1.3-6.7); Neutrophils Percent Auto 69.1 % (45.5-73.1); Platelet Count Result 184 k/mm3 (150-375); Red Blood Count 3.76 M/mm3 (4.2-5.4); Red Cell Distribution Width 16.9 % (11.5-14.5)
[2024-03-13 05:50] VITALS: BP 143/92; PULSE 71; RESP 18; TEMP 36.6; O2SAT 99
[2024-03-13 07:30] VITALS: BP 142/92; PULSE 67; RESP 16; TEMP 37.7; O2SAT 97
--- NOTE | 2024-03-13 07:35 | PM.OBPNVD ---
OB - PN: Subj Subjective Date/time seen: 03/13/24 07:35 Patient comments: no complaints and pain well controlled baby status: doing well Narrative: No PIH sx OB - PN: Obj Data Labs 03/13/24 05:32 03/11/24 16:37 Labs: Laboratory Results - last 24 hr 03/11/24 03/13/24 16:35 05:32 WBC 11.0 H RBC 3.76 L Hgb 10.9 L Hct 33.6 L MCV 89.4 MCH 29.0 MCHC 32.4 RDW 16.9 H Plt Count 184 MPV 12.2 H Immature Gran % (Auto) 0.6 H Neut % (Auto) 69.1 Lymph % (Auto) 20.4 Pen[place] % (Auto) 8.4 Eos % (Auto) 1.1 Baso % (Auto) 0.4 Lymph # (Auto) 2.23 [place] # (Auto) 0.9 H Eos # (Auto) 0.1 Baso # (Auto) 0.0 Abs Immat Gran (auto) 0.07 H Absolute Neuts (auto) 7.6 H Absolute Nucleated RBC 0.000 Nucleated RBC % 0.0 RPR Non-reactive OB - PN A/P Assessment and Plan (1) Preeclampsia: Code(s): O14.90 - Unspecified pre-eclampsia, unspecified trimester Status: Acute Assessment and Plan: continue Procardia XL 30 q day starting diuesis BP improving Plan day: 1 Plan: routine care Time Spent With Patient Time: Total time spent is greater than 50% in coordination of care (as documented) at patient's floor/unit and/or counseling patient: Exam Narrative: bandage dry : Bimanual exam- vagina & uterus: other (Uterus firm, nt @U)
[2024-03-13] MEDS: NIFEdipine 30 MG TAB.ER.24 PO (08:25)
[2024-03-13] MEDS: DOCUSATE SODIUM 100 MG CAPSULE PO ×2 (08:25→17:49)
[2024-03-13] MEDS: HYDROcodone/acetaminophen (*CRX) 5-325 MG TABLET 1 TAB PO (08:26)
[2024-03-13] MEDS: SIMETHICONE 80 MG TAB.CHEW PO ×3 (08:27→17:49)
[2024-03-13] MEDS: MULTIVIT/MIN/PREN/FOL AC/IRON TABLET 1 TAB PO (08:27)
--- NOTE | 2024-03-13 09:05 | WPDANLDPN2 ---
Anes-Prog Note L&D Date/Time: 03/13/24 09:05 Comfortable throughout: labor, delivery and section Neuraxial method: epidural Epidural/Spinal procedure site: clean & non-tender Neuro status: Neuro function grossly intact. Cardiovascular status: normal Respiratory status: normal Airway patency: baseline Mental status: baseline Post-Op hydration status: normal Vital Signs: Last Vital Signs Temp 37.7 C H 03/13/24 07:30 Pulse 67 03/13/24 07:30 Resp 16 03/13/24 07:30 BP 142/92 H 03/13/24 07:30 Pulse Ox 97 03/13/24 07:30 O2 Del Method Room Air 03/13/24 05:50 Pain score (VAS): 3 I/O: Intake & Output 03/12/24 03/13/24 03/13/24 23:59 07:59 15:59 Intake Total 1580 Output Total 300 2300 Balance -300 -720 Post-procedural complaints: none Patient feedback: Patient satisfied with anesthetic care.
--- NOTE | 2024-03-13 09:05 | WPDANLDNPN2 ---
Anes-Prog Note L&D-Neuraxial Date/Time: 03/13/24 09:05 Neuraxial medications: epidural PF morphine Opiod-related complaints: none Patient feedback: Patient satisfied with post-operative pain management.
[2024-03-13] MEDS: LIDOCAINE 5% PATCH 1 PATCH TRANSDERM (11:36)
--- NOTE | 2024-03-13 11:43 | PC.NURSE ---
[id number]. Introductions were made, then consulted with patient to assess needs related to . Mother led the conversation with her?plans to feed?her and the?experience so far. Mother explained baby has been sleepy at the breast and she has been working on trying to stimulate to wake him. Encouraged understanding of the benefits of skin to skin (demonstrating unwrapping infant and placing upright on her chest), stimulating with massage touch, changing positions to encourage wakefulness, how to watch for early feeding cues, responsive feeding, feeding on demand (aiming for 8-12 times in 24 hours, about every 2-3 hours), milk production, building/maintaining a milk supply, duration of feeding, signs of adequate intake/output and how to record on the feeding sheet. Reviewed positioning of baby's latch with ear, shoulder, hip alignment, supporting the breast to facilitate a deep latch, asymmetrical latch (off-center), leading with the chin with a big, open, wide gape and body close to mother. Infant struggled to open wide and latch on his own. RN helped open his mouth wide and struggled to stuck and initiate deep latch. Multiple attempts made. Optimal latch finally made but did not maintain a steady stuck. Infant was very sleepy at the breast and continued to refuse to suck after stimulating him with touch and movement. Mother encouraged to supplement baby for this feed since he was unable to maintain a latch during the attempt, RN Syringe fed 3ml EBM and mother bottle fed 15 ml Kenamil formula. Mother encouraged to pump for 15 min if infant is unable to maintain a latch with rhythmic sucking for at least 10-15 min. Both parents educated on the 15-15-15 feeding plan, and parents encouraged to start it. RN explained that infant should try for 15 min and if he does not have a good attempt/feeding for 10-15 min then to supplement baby with at least 15 ml of expressed breast milk or formula and then pump after. Both parents verbalized understanding. Reviewed comfort measures of healing with a warm, wet washcloth to rinse breast, then leave open to air-dry, good handwashing when or touching the breast/nipples to prevent infection. Mother voiced understanding of skin to skin, stimulating with massage touch, responsive feedings, hand expressed colostrum, talking to infant to encourage if it has been 2 -2.5 hours since the start of the last , to call if does not latch, or if there is discomfort with . Resources used for education were facilitated with the visual educational handouts/ tool/mom and baby guide. Inpatient resources provided with feeding sheet, name written on the communication board, and the mom/baby guide. Parents voiced understanding of information, demonstrated learning and will call if there is a request for assistance. Reported to the Primary RN.
[2024-03-13 12:11] VITALS: BP 148/89; PULSE 80; RESP 16; TEMP 37.2; O2SAT 97
--- NOTE | 2024-03-13 12:33 | PC.NURSE ---
1215. Baby due to feed. Rn checked on mom to see if she attempted to nurse baby for next feed. RN helped mom latch infant in football hold, remained sleepy and reluctant during attempt. Infant stimulated with movement, touch and talk. RN syringe fed infant 1.5 cc of EBM. Mother encouraged to attempt again to BF infant in the next 20-30 min and if still sleepy/reluctant to pump for 15 min and supplement baby with at least 15 ml of formula. Mother voiced understanding of information and will call if there is a request for assistance with latch/feeding. Reported to the Primary RN.
--- NOTE | 2024-03-13 15:21 | PC.NURSE ---
1500. Nipple shield provided to mother due to large nipples and infant struggling to latch and maintain latch. Reviewed good handwashing, cleaning the nipple shield and the appropriate way to apply and use as a tool. Discussed with mom the nipple shield precautions, possible complications associated with the risks and benefits. Reviewed practicing with a nipple shield, then without and how to protect the milk supply and production. Mom and baby guide referred to as a resource for outpatient services, community resources and when to call a provider. Mom voiced understanding of the importance of hand expression, nipple stimulation and initiating a pumping schedule if continues to nurse with the shield. Mom voiced understanding of attempting to BF the infant with the Nipple shield and if baby unable to maintain latch and rhythmic sucking for 10 min or longer than to follow the 15-15-15 feeding plan (BF attempt for 15 min, pump for 15, then feed baby at least 15 ml of formula or EBM).Reported to the Primary RN.
[2024-03-13 16:25] VITALS: BP 143/91; PULSE 78; RESP 18
[2024-03-13] MEDS: IBUPROFEN 600 MG TABLET PO ×2 (17:50→23:18)
[2024-03-13] MEDS: HYDROcodone/acetaminophen (*CRX) 10-325 MG TABLET 1 TAB PO ×2 (19:28→23:18)
[2024-03-13 21:44] VITALS: BP 144/87; PULSE 77; RESP 18; TEMP 37; O2SAT 95
[2024-03-14] VITALS (8 sets, daily range): BP systolic 122–164; BP diastolic 70–91; PULSE 73–83; RESP 18; TEMP 36.9; O2SAT 96–99
[2024-03-14] MEDS: HYDROcodone/acetaminophen (*CRX) 5-325 MG TABLET 1 TAB PO (04:22)
[2024-03-14] MEDS: IBUPROFEN 600 MG TABLET PO ×2 (05:00→11:13)
[2024-03-14] MEDS: MULTIVIT/MIN/PREN/FOL AC/IRON TABLET 1 TAB PO (07:08)
[2024-03-14] MEDS: SIMETHICONE 80 MG TAB.CHEW PO ×2 (07:09→11:13)
[2024-03-14] MEDS: DOCUSATE SODIUM 100 MG CAPSULE PO (07:09)
[2024-03-14] MEDS: HYDROcodone/acetaminophen (*CRX) 10-325 MG TABLET 1 TAB PO ×2 (07:11→12:22)
[2024-03-14] MEDS: NIFEdipine 30 MG TAB.ER.24 PO (08:40)
--- NOTE | 2024-03-14 11:05 | P.PNOB_ITS ---
OB - PN: Subj Subjective Date/time seen: 03/14/24 0730 Interval history: Doing well. Urinating without difficulty. Denies passing any large clots. Denies dizziness with ambulating. Tolerating po food and fluids. Bonding with infant. Pain well controlled with medications. Desires DC home today. Denies MARTIN, Blurred vision, RUQ pain, or increase in edema. Patient comments: no complaints and pain well controlled Brandon baby status: doing well feeding status: breast and bottle feeding OB - PN: Obj Data Labs 03/13/24 05:32 03/11/24 16:37 OB - PN A/P Assessment and Plan (1) Delivery by section using transverse incision of lower segment of uterus: Code(s): O82 - Encounter for delivery without indication Status: Acute (2) 37 weeks gestation of : Code(s): Z3A.37 - 37 weeks gestation of Status: Acute (3) Preeclampsia: Code(s): O14.90 - Unspecified pre-eclampsia, unspecified trimester Status: Acute Plan day: 2 Plan: discharge home Time Spent With Patient Time: Total time spent is greater than 50% in coordination of care (as documented) at patient's floor/unit and/or counseling patient: Review of Systems Review of Systems: All systems reviewed & are unremarkable except as noted in HPI and below Exam Const: General: cooperative, no acute distress and awake Orientation/consc iousness: patient oriented x3 Limitations: no limitations Resp: Effort & Inspection: normal respiratory effort and able to speak in complete sentences Auscultation: clear to auscultation bilaterally Cardio: Rate: regular rate Peripheral pulses: Peripheral pulses 2+ throughout GI: Inspection: normal to inspection Auscultation: normal bowel sounds : General: Yes bladder normal to palpation Speculum Exam - Vagina: vaginal bleeding Bimanual exam- vagina & uterus: bladder normal to palpation OB/external & speculum: vaginal bleeding Other: Fundus firm. Below U Skin: General skin exam: normal color Other: Incision covered with dressing. Neuro: General: patient oriented x3 Cognition (Neuro): normal cognition Speech: normal speech Extrem: General: normal to inspection Psych: Appearance: grossly normal Mental Status: mental status grossly normal Speech and movement: Normal speech and movement present Affect: normal affect Attitude: cooperative Thought process: Normal thought process present
[2024-03-14] MEDS: ACETAMINOPHEN 325 MG TABLET 650 MG PO (11:13)
--- NOTE | 2024-03-14 11:15 | PC.NURSE ---
[id number]. Consulted with mother concerning needs. Mother feels confident in her ability to continue with the 15-15-15 feeding plan (attempting to feed baby at the breast for 15 min and if baby is unable to feed at the breast for 15 then to go ahead and pump for 15 and supplement baby with at least 15 ml of EBM or formula. Discussed with mom the amount of voids and stools baby should have in a day. Reviewed with mom when her full volume milk should come in, and to allow baby to continue to increase the amount of EMB or formula he takes based on his desire and hunger cues. Mother is feeding appropriately for growth of infant and understands stimulating infant to eat if needed, and continue to feed baby every 3 hours and wake to feed if need be. Infant has had appropriate feedings in the last 24 hours meets the outcomes for weight, output, blood sugar and jaundice at this time. Reinforced understanding of milk production, transition of milk, signs of adequate intake, transition of stool, prevention/relief of engorgement, plugged ducts, mastitis, responsive watching for feeding cues, the different methods of stimulating to breastfeed 1-3 hours after the start of the last feeding, community resources, and when to call a provider using the resource of the feeding sheet along with the mom and baby guide. Mother voiced understanding of the information shared, is confident to continue effectively her infant at home, when to call for assistance, denies any additional assistance or education at this time. Reported to the Primary RN.
[2024-03-14 12:20] LABS: Alanine Aminotransferase 13 U/L (6-35); Albumin Level 3.5 g/dL (3.5-5.1); Alkaline Phosphatase 96 U/L (38-126); Anion Gap 7 mmol/L (4-12); Aspartate Amino Transferase 19 U/L (14-36); Bilirubin,Total 0.3 mg/dL (0.2-1.3); Blood Urea Nitrogen 13 mg/dL (7-17); Carbon Dioxide 20 mmol/L (22-30); Chloride 106 mmol/L (98-107); Estimated CRCL calculation 179 ml/min; Estimated Glomerular Filt Rate > 60; Glucose 99 mg/dL (65-110); Potassium 4.5 mmol/L (3.4-5.0); Sodium 133 mmol/L (137-145)
[2024-03-15 10:38] VITALS: BP 149/86; PULSE 86; RESP 18; TEMP 36.7; O2SAT 99
== END 2024-03-14 15:12 | disposition home or self-care (01) | DRG 788 ==
LOC: ANHLDR 03-12 13:57 → ANHOB2 03-14 11:12 → ANHLDR 03-15 07:47 → ANHOB2 03-15 07:47
PROVIDERS: Advanced Practice Midwife; Admitting Provider Obstetrics & Gynecology Gynecology; PCP Physician Assistant; Visit Provider Obstetrics & Gynecology Gynecology
PROC: 10D00Z1 Extraction of Products of Conception, Low, Open Approach (ICD-10-PCS; CPT 59514; principal; 2024-03-12 11:45)
DX: O14.14 Severe pre-eclampsia complicating childbirth (principal); Z37.0 Single live birth; Z3A.37 37 weeks gestation of pregnancy; O32.1XX0 Maternal care for breech presentation, not applicable or unspecified; O99.214 Obesity complicating childbirth; E66.01 Morbid (severe) obesity due to excess calories; O99.284 Endocrine, nutritional and metabolic diseases complicating childbirth; E06.3 Autoimmune thyroiditis
CPT/HCPCS: 36415; 80053; 84550; 85025; 86592; 86703; 86850; 86900; 86901; 88307; A9270; G0432; J0360; J0456; J0690; J1885; J2274; J2405; J2590; J2795; J7120